=== PATIENT | female | born 1970 | race Caucasian/White ===

== ENCOUNTER 2023-02-21 21:39 | Inpatient (IN) | payer OTHER ==
[~2023-02-21] VITALS: Ht 162.6 cm; Wt 77.1 kg
[~2023-02-21 21:39] MED LIST: ACET-5629 PO; ALBU3SOL83 IH; ASPI-1205 PO; CLON0.1T46 TD; FAMO-90 PO; FERR325E14 PO; FURO-570 PO; GABA300C PO; MELA3TAB21 PO; MELA3TER PO; MERO500V16 IV; METO50TE2 PO; METO5TAB9 PO; MIRABULK PO; MIRT-120 PO; MULT-2246 PO; NEP PO; ONDA-188 PO; OSC500 PO; PRO40I IVP; SIMV-372 PO
[2023-02-21 21:40] VITALS: BP 182/81; PULSE 82; RESP 20; TEMP 97.8; O2SAT 98
[2023-02-21] MEDS ORDERED: cefTRIAXone 1,000 MG in DEXT 5% MINI-BAG PLUS 50 ML IV ONE (21:45)
[2023-02-21] MEDS ORDERED: cefTRIAXone 1,000 MG VIAL ONE (22:40)
[2023-02-21 22:46] LABS: BASOPHILS % (AUTO) 0.2 % (0.0-2.0); EOSINOPHILS % (AUTO) 0.1 % (0.0-4.0); HEMATOCRIT 26.5 % (36-48); HEMOGLOBIN 8.6 g/dL (12.0-16.0); LYMPHOCYTES # (AUTO) 0.7 K/uL (2.5-16.5); LYMPHOCYTES % (AUTO) 3.4 % (20.5-51.1); MEAN CORPUSCULAR HEMOGLOBIN 32 pg (27-31); MEAN CORPUSCULAR HGB CONC 32 g/dL (33-37); MEAN CORPUSCULAR VOLUME 98.5 fL (80-94); MONOCYTES # (AUTO) 1.3 K/uL (0.8-1.0); MONOCYTES % (AUTO) 6.1 % (1.7-9.3); NEUTROPHILS # (AUTO) 19.3 K/uL (1.8-7.7); PLATELET COUNT (AUTO) 305 K/uL (140-450); RED BLOOD CELL COUNT(AUTO) 2.69 MIL/uL (4.20-5.40); RED CELL DISTRIBUTION WIDTH 17.2 % (11.6-13.7); WHITE BLOOD COUNT (AUTO) 21.4 K/uL (4.8-10.8)
[2023-02-21 23:17] LABS: CALCIUM 8.3 mg/dL (8.5-10.1)
[2023-02-21 23:22] LABS: NEUTROPHILS % (AUTO) 90.2 % (42.2-75.2)
[2023-02-21 23:30] LABS: LACTIC ACID 0.9 mmol/L (0.4-2.0)
[2023-02-21] MEDS ORDERED: SODIUM ZIRCONIUM CYCLOSILICATE 10 GM POWD.PACK PO ONE (23:40)
[2023-02-21] MEDS ORDERED: CALCIUM GLUCONATE 10% 1000 MG/10 ML VIAL IVP ONE (23:40)
[2023-02-21] MEDS ORDERED: INSULIN REGULAR, HUMAN 100 UNIT/ML VIAL IVP ONE (23:40)
[2023-02-21] MEDS ORDERED: DEXTROSE 50% 50 ML SYR IVP ONE (23:40)
[2023-02-21] MEDS ORDERED: ALBUTEROL 0.083% 2.5 MG/3 ML NEBU INH ONE (23:40)
[2023-02-21 23:45] VITALS: PULSE 93; RESP 16; O2SAT 99
[2023-02-22] VITALS (8 sets, daily range): BP systolic 116–181; BP diastolic 73–91; PULSE 74–87; RESP 16–18; TEMP 97.6–98.8; O2SAT 99–100
[2023-02-22] MEDS ORDERED: LORazepam 2 MG/ML VIAL IVP ONE
[2023-02-22] MEDS ORDERED: FUROSEMIDE 40 MG/4 ML VIAL IVP ONE (00:15)
[2023-02-22] MEDS ORDERED: ONDANSETRON 4 MG/2 ML VIAL IVP PRN (00:50)
[2023-02-22] MEDS ORDERED: ALBUTEROL 0.083% 2.5 MG/3 ML NEBU INH PRN (00:50)
[2023-02-22 01:04] LABS: APPEARANCE,URINE TURBID (CLEAR); BILIRUBIN,URINE NEGATIVE (NEGATIVE); BLOOD, URINE 2+ (NEGATIVE); COLOR,URINE YELLOW (YELLOW); LEUKOCYTE ESTERASE ,URINE 2+ (NEGATIVE); NITRITE, URINE NEGATIVE (NEGATIVE); PROTEIN,URINE 3+ (NEGATIVE); UGLUCOSE NEGATIVE (NEGATIVE); UROBILINOGEN,URINE 0.2 EU/dL (0.2 - 1)
[2023-02-22 01:15] LABS: BACTERIA,URINE 1+ /HPF (None Seen); RBC,URINE 0-5 /HPF (0-5); SQUAMOUS EPITHELIAL CELL,UR 0-3 (FEW) /LPF (0-3 (FEW))
[2023-02-22 01:16] LABS: WBC,URINE TOO MANY TO COUNT /HPF (0-5)
[2023-02-22] MEDS ORDERED: MORPHINE SULFATE 4 MG/ML SYR IVP ONE (01:30)
[2023-02-22] MEDS ORDERED: SEVE800T6 PO (03:02)
[2023-02-22] MEDS ORDERED: TRAM50TA3 PO (03:02)
[2023-02-22] MEDS ORDERED: INSU100V11 SQ (03:02)
[2023-02-22] MEDS ORDERED: DIPH25SG5 PO (03:02)
[2023-02-22] MEDS ORDERED: TRAZ-466 PO (03:02)
[2023-02-22] MEDS ORDERED: METO-485 PO (03:02)
[2023-02-22] MEDS ORDERED: [UNRECOGNIZED DRUG - CODE] PO (03:02)
[2023-02-22] MEDS ORDERED: CLON0.1T16 PO (03:02)
[2023-02-22] MEDS ORDERED: MUPI2OIN TP (03:02)
[2023-02-22] MEDS ORDERED: OMAD150T PO (03:02)
[2023-02-22] MEDS ORDERED: XALOS OP (03:04)
[2023-02-22] MEDS: FUROSEMIDE 40 MG/4 ML VIAL IVP SCH ×2 (09:00→21:31)
[2023-02-22] MEDS: METOPROLOL SUCCINATE 50 MG TABER PO SCH (09:00)
[2023-02-22 10:21] LABS: BASOPHILS # (AUTO) 0.1 K/uL (0.00-0.22); BASOPHILS % (AUTO) 0.4 % (0.0-2.0); EOSINOPHILS # (AUTO) 0.1 K/uL (0-0.4); EOSINOPHILS % (AUTO) 0.5 % (0.0-4.0); HEMATOCRIT 26.3 % (36-48); HEMOGLOBIN 8.7 g/dL (12.0-16.0); LYMPHOCYTES # (AUTO) 0.9 K/uL (2.5-16.5); LYMPHOCYTES % (AUTO) 3.9 % (20.5-51.1); MEAN CORPUSCULAR HEMOGLOBIN 33 pg (27-31); MEAN CORPUSCULAR HGB CONC 33 g/dL (33-37); MEAN CORPUSCULAR VOLUME 98.7 fL (80-94); MONOCYTES # (AUTO) 1.9 K/uL (0.8-1.0); MONOCYTES % (AUTO) 8.4 % (1.7-9.3); NEUTROPHILS # (AUTO) 19.5 K/uL (1.8-7.7); NEUTROPHILS % (AUTO) 86.8 % (42.2-75.2); PLATELET COUNT (AUTO) 279 K/uL (140-450); RED BLOOD CELL COUNT(AUTO) 2.67 MIL/uL (4.20-5.40); RED CELL DISTRIBUTION WIDTH 16.8 % (11.6-13.7); WHITE BLOOD COUNT (AUTO) 22.5 K/uL (4.8-10.8)
[2023-02-22 10:37] LABS: ANION GAP 14.1 (8-16); CALCIUM 8.5 mg/dL (8.5-10.1); POTASSIUM 4.1 mmol/L (3.5-5.1)
[2023-02-22 10:48] LABS: CREATININE 5.9 mg/dL (0.6-1.3)
[2023-02-22 11:20] LABS: INR 1.72 (0.8-1.2); PARTIAL THROMBOPLASTIN TIME 36.3 secs (22-35.6); PROTHROMBIN TIME 17.6 secs (10.8-13.4)
[2023-02-22] MEDS: HYDRAGUARD CREAM TP SCH (13:00)
[2023-02-22] MEDS: MIRTAZAPINE 15 MG TAB PO SCH (21:31)
[2023-02-22] MEDS: hydrALAZINE 25 MG TAB PO PRN (23:34)
[2023-02-23] VITALS (11 sets, daily range): BP systolic 148–192; BP diastolic 65–83; PULSE 74–88; RESP 18–20; TEMP 97.3–98.8; O2SAT 93–100
[2023-02-23] MEDS: HYDRAGUARD CREAM TP SCH ×2 (02:18→12:40)
[2023-02-23 06:37] LABS: BASOPHILS % (AUTO) 0.2 % (0.0-2.0); EOSINOPHILS # (AUTO) 0.1 K/uL (0-0.4); EOSINOPHILS % (AUTO) 0.6 % (0.0-4.0); HEMATOCRIT 26.2 % (36-48); HEMOGLOBIN 8.5 g/dL (12.0-16.0); LYMPHOCYTES # (AUTO) 0.8 K/uL (2.5-16.5); LYMPHOCYTES % (AUTO) 4.1 % (20.5-51.1); MEAN CORPUSCULAR HEMOGLOBIN 32 pg (27-31); MEAN CORPUSCULAR HGB CONC 33 g/dL (33-37); MEAN CORPUSCULAR VOLUME 99.3 fL (80-94); MONOCYTES # (AUTO) 1.6 K/uL (0.8-1.0); MONOCYTES % (AUTO) 8.4 % (1.7-9.3); NEUTROPHILS % (AUTO) 86.7 % (42.2-75.2); PLATELET COUNT (AUTO) 303 K/uL (140-450); RED BLOOD CELL COUNT(AUTO) 2.64 MIL/uL (4.20-5.40); RED CELL DISTRIBUTION WIDTH 16.6 % (11.6-13.7); WHITE BLOOD COUNT (AUTO) 19.6 K/uL (4.8-10.8)
[2023-02-23 06:41] LABS: ALBUMIN 1.7 g/dL (3.4-5.0); ANION GAP 13.8 (8-16); CALCIUM 8.2 mg/dL (8.5-10.1); CARBON DIOXIDE 28.9 mmol/L (21-32); MAGNESIUM 2.2 mg/dL (1.8-2.4); PHOSPHORUS 2.6 mg/dL (2.5-4.9); POTASSIUM 3.7 mmol/L (3.5-5.1); TOTAL BILIRUBIN 0.6 mg/dL (0.0-1.0)
[2023-02-23 06:43] LABS: CREATININE 4.2 mg/dL (0.6-1.3)
[2023-02-23] MEDS: METOPROLOL SUCCINATE 50 MG TABER PO SCH (09:03)
[2023-02-23] MEDS: ASPIRIN 81 MG TAB.CHEW PO SCH (09:03)
[2023-02-23] MEDS: FUROSEMIDE 40 MG/4 ML VIAL IVP SCH ×2 (09:04→20:42)
[2023-02-23] MEDS: LOSARTAN 25 MG TAB PO SCH (09:04)
[2023-02-23] MEDS: MIRTAZAPINE 15 MG TAB PO SCH (20:43)
[2023-02-24] VITALS (8 sets, daily range): BP systolic 120–175; BP diastolic 71–87; PULSE 82–88; RESP 18–24; TEMP 97.2–98.8; O2SAT 94–100
[2023-02-24] MEDS: HYDRAGUARD CREAM TP SCH ×2 (01:26→12:54)
[2023-02-24] MEDS: hydrALAZINE 25 MG TAB PO PRN (04:11)
[2023-02-24 07:47] LABS: ANION GAP 18.3 (8-16); CALCIUM 8.6 mg/dL (8.5-10.1); CARBON DIOXIDE 24.7 mmol/L (21-32)
[2023-02-24 07:49] LABS: CREATININE 4.5 mg/dL (0.6-1.3)
[2023-02-24] MEDS: ASPIRIN 81 MG TAB.CHEW PO SCH (08:41)
[2023-02-24] MEDS: FUROSEMIDE 40 MG/4 ML VIAL IVP SCH ×2 (08:41→20:51)
[2023-02-24] MEDS: METOPROLOL SUCCINATE 50 MG TABER PO SCH (08:41)
[2023-02-24] MEDS: LOSARTAN 25 MG TAB PO SCH (08:41)
[2023-02-24 09:04] LABS: BASOPHILS % (AUTO) 0.1 % (0.0-2.0); EOSINOPHILS % (AUTO) 0.2 % (0.0-4.0); HEMATOCRIT 27.3 % (36-48); LYMPHOCYTES # (AUTO) 0.9 K/uL (2.5-16.5); LYMPHOCYTES % (AUTO) 4.5 % (20.5-51.1); MEAN CORPUSCULAR HEMOGLOBIN 33 pg (27-31); MEAN CORPUSCULAR HGB CONC 33 g/dL (33-37); MEAN CORPUSCULAR VOLUME 98.8 fL (80-94); MONOCYTES # (AUTO) 1.6 K/uL (0.8-1.0); MONOCYTES % (AUTO) 8.4 % (1.7-9.3); NEUTROPHILS # (AUTO) 16.3 K/uL (1.8-7.7); NEUTROPHILS % (AUTO) 86.8 % (42.2-75.2); PLATELET COUNT (AUTO) 302 K/uL (140-450); RED BLOOD CELL COUNT(AUTO) 2.76 MIL/uL (4.20-5.40); RED CELL DISTRIBUTION WIDTH 17.1 % (11.6-13.7); WHITE BLOOD COUNT (AUTO) 18.8 K/uL (4.8-10.8)
[2023-02-24] MEDS ORDERED: NON ADHERENT DRESSING TP PRN (12:25)
[2023-02-24] MEDS ORDERED: Z-GUARD PASTE TP PRN (12:25)
[2023-02-24] MEDS: NON ADHERENT DRESSING TP SCH (12:55)
[2023-02-24] MEDS: Z-GUARD PASTE TP SCH (12:55)
[2023-02-24 19:36] LABS: TOTAL VOLUME,BODY FLUID 2000 mL
[2023-02-24 19:47] LABS: APPEARANCE,SPUN,BODY FLUID CLEAR (CLEAR); APPEARANCE,UNSPUN,BODY FLUID CLEAR (CLEAR); COLOR,BODY FLUID YELLOW (LT YELLOW); GLUCOSE,BODY FLUID 69 mg/dL; RBC, BODY FLUID 19 /cu. mm.; SPECIMENTYPE,BODY FLUID THORACENTESIS; WBC, BODY FLUID 2 /cu. mm.
[2023-02-24] MEDS: MIRTAZAPINE 15 MG TAB PO SCH (20:51)
[2023-02-25] VITALS (9 sets, daily range): BP systolic 146–192; BP diastolic 65–80; PULSE 78–85; RESP 17–18; TEMP 97.3–98.1; O2SAT 97–99
[2023-02-25] MEDS: HYDRAGUARD CREAM TP SCH ×2 (01:05→13:00)
[2023-02-25] MEDS: Z-GUARD PASTE TP SCH ×2 (01:05→13:00)
[2023-02-25 06:25] LABS: BASOPHILS % (AUTO) 0.1 % (0.0-2.0); EOSINOPHILS # (AUTO) 0.1 K/uL (0-0.4); EOSINOPHILS % (AUTO) 0.5 % (0.0-4.0); HEMATOCRIT 28.4 % (36-48); HEMOGLOBIN 9.4 g/dL (12.0-16.0); LYMPHOCYTES # (AUTO) 0.9 K/uL (2.5-16.5); MEAN CORPUSCULAR HEMOGLOBIN 33 pg (27-31); MEAN CORPUSCULAR HGB CONC 33 g/dL (33-37); MEAN CORPUSCULAR VOLUME 97.8 fL (80-94); MONOCYTES # (AUTO) 1.7 K/uL (0.8-1.0); MONOCYTES % (AUTO) 7.7 % (1.7-9.3); NEUTROPHILS # (AUTO) 18.9 K/uL (1.8-7.7); NEUTROPHILS % (AUTO) 87.7 % (42.2-75.2); PLATELET COUNT (AUTO) 298 K/uL (140-450); RED CELL DISTRIBUTION WIDTH 17.2 % (11.6-13.7); WHITE BLOOD COUNT (AUTO) 21.6 K/uL (4.8-10.8)
[2023-02-25 06:46] LABS: ANION GAP 17.2 (8-16); CALCIUM 8.2 mg/dL (8.5-10.1); CARBON DIOXIDE 26.1 mmol/L (21-32); POTASSIUM 4.3 mmol/L (3.5-5.1)
[2023-02-25 08:39] LABS: CREATININE 5.1 mg/dL (0.6-1.3)
[2023-02-25] MEDS: ASPIRIN 81 MG TAB.CHEW PO SCH ×2 (08:42→09:00)
[2023-02-25] MEDS: FUROSEMIDE 40 MG/4 ML VIAL IVP SCH ×2 (08:42→23:02)
[2023-02-25] MEDS: VIT-B COMP/VIT-C/FOLIC ACID 1 TAB PO SCH ×2 (08:43→09:00)
[2023-02-25] MEDS: LOSARTAN 25 MG TAB PO SCH ×2 (08:43→09:00)
[2023-02-25] MEDS: METOPROLOL SUCCINATE 50 MG TABER PO SCH ×2 (08:43→09:00)
[2023-02-25] MEDS: EPOETIN ALFA 4,000 UNITS/ML VIAL SUBQ SCH (08:45)
[2023-02-25] MEDS: hydrALAZINE 20 MG/ML VIAL IVP PRN (08:59)
[2023-02-25] MEDS ORDERED: LABETALOL 20 MG/4 ML VIAL IVP PRN (11:55)
[2023-02-25] MEDS: NON ADHERENT DRESSING TP SCH (13:00)
[2023-02-25] MEDS: MIRTAZAPINE 15 MG TAB PO SCH (21:00)
[2023-02-26] MEDS: hydrALAZINE 20 MG/ML VIAL IVP PRN (00:30)
[2023-02-26] MEDS: HYDRAGUARD CREAM TP SCH ×2 (01:00→12:16)
[2023-02-26] MEDS: Z-GUARD PASTE TP SCH ×2 (01:00→12:17)
[2023-02-26 04:00] VITALS: BP 144/66; PULSE 84; RESP 18; TEMP 97.9; O2SAT 98
[2023-02-26 06:34] LABS: BASOPHILS % (AUTO) 0.2 % (0.0-2.0); EOSINOPHILS # (AUTO) 0.1 K/uL (0-0.4); EOSINOPHILS % (AUTO) 0.2 % (0.0-4.0); HEMOGLOBIN 8.3 g/dL (12.0-16.0); LYMPHOCYTES # (AUTO) 0.9 K/uL (2.5-16.5); LYMPHOCYTES % (AUTO) 3.7 % (20.5-51.1); MEAN CORPUSCULAR HEMOGLOBIN 32 pg (27-31); MEAN CORPUSCULAR HGB CONC 33 g/dL (33-37); MEAN CORPUSCULAR VOLUME 97.8 fL (80-94); MONOCYTES # (AUTO) 1.9 K/uL (0.8-1.0); MONOCYTES % (AUTO) 8.1 % (1.7-9.3); NEUTROPHILS # (AUTO) 20.4 K/uL (1.8-7.7); NEUTROPHILS % (AUTO) 87.8 % (42.2-75.2); PLATELET COUNT (AUTO) 228 K/uL (140-450); RED BLOOD CELL COUNT(AUTO) 2.56 MIL/uL (4.20-5.40); WHITE BLOOD COUNT (AUTO) 23.2 K/uL (4.8-10.8)
[2023-02-26 07:28] LABS: ANION GAP 17.3 (8-16); CALCIUM 8.3 mg/dL (8.5-10.1); CARBON DIOXIDE 25.2 mmol/L (21-32); POTASSIUM 3.5 mmol/L (3.5-5.1)
[2023-02-26] MEDS: FUROSEMIDE 40 MG/4 ML VIAL IVP SCH ×2 (08:34→20:45)
[2023-02-26] MEDS: ASPIRIN 81 MG TAB.CHEW PO SCH (08:34)
[2023-02-26] MEDS: LOSARTAN 25 MG TAB PO SCH (08:35)
[2023-02-26] MEDS: VIT-B COMP/VIT-C/FOLIC ACID 1 TAB PO SCH (08:35)
[2023-02-26] MEDS: METOPROLOL SUCCINATE 50 MG TABER PO SCH (08:35)
[2023-02-26 09:03] VITALS: BP 149/65; PULSE 86; RESP 20; TEMP 98.4; O2SAT 96
[2023-02-26 09:04] VITALS: PULSE 86; RESP 18; RESP 20; O2SAT 96
[2023-02-26] MEDS: NON ADHERENT DRESSING TP SCH (12:16)
[2023-02-26 17:02] VITALS: BP 136/55; PULSE 82; RESP 20; TEMP 98.2; O2SAT 98
[2023-02-26 20:00] VITALS: BP 152/68; PULSE 86; RESP 18; RESP 20; TEMP 96.8; TEMP 98.2; O2SAT 96; O2SAT 98
[2023-02-26 20:21] VITALS: O2SAT 93
[2023-02-26] MEDS: ACETAMINOPHEN 325 MG TAB PO PRN (20:44)
[2023-02-26] MEDS: LACTULOSE 20 GM/30 ML UDC PO SCH ×2 (20:45→22:14)
[2023-02-26] MEDS: MIRTAZAPINE 15 MG TAB PO SCH (20:45)
[2023-02-27] MEDS: Z-GUARD PASTE TP SCH ×2 (01:08→12:59)
[2023-02-27] MEDS: HYDRAGUARD CREAM TP SCH ×2 (01:08→12:59)
[2023-02-27 04:15] VITALS: BP 114/72; PULSE 84; RESP 18; TEMP 97.5; O2SAT 99
[2023-02-27 06:13] LABS: EOSINOPHILS # (AUTO) 0.1 K/uL (0-0.4); EOSINOPHILS % (AUTO) 0.4 % (0.0-4.0); HEMATOCRIT 24.1 % (36-48); LYMPHOCYTES # (AUTO) 0.9 K/uL (2.5-16.5); LYMPHOCYTES % (AUTO) 4.5 % (20.5-51.1); MEAN CORPUSCULAR HEMOGLOBIN 32 pg (27-31); MEAN CORPUSCULAR HGB CONC 33 g/dL (33-37); MEAN CORPUSCULAR VOLUME 97.6 fL (80-94); MONOCYTES % (AUTO) 5.2 % (1.7-9.3); NEUTROPHILS # (AUTO) 17.5 K/uL (1.8-7.7); NEUTROPHILS % (AUTO) 89.9 % (42.2-75.2); PLATELET COUNT (AUTO) 188 K/uL (140-450); RED BLOOD CELL COUNT(AUTO) 2.47 MIL/uL (4.20-5.40); RED CELL DISTRIBUTION WIDTH 17.8 % (11.6-13.7); WHITE BLOOD COUNT (AUTO) 19.5 K/uL (4.8-10.8)
[2023-02-27 06:21] LABS: ANION GAP 11.4 (8-16); CALCIUM 7.9 mg/dL (8.5-10.1); POTASSIUM 3.4 mmol/L (3.5-5.1)
[2023-02-27 07:11] LABS: CREATININE 4.6 mg/dL (0.6-1.3)
[2023-02-27 07:55] LABS: MAGNESIUM 2.1 mg/dL (1.8-2.4)
[2023-02-27 08:00] VITALS: BP 148/58; PULSE 78; PULSE 90; RESP 18; TEMP 96; O2SAT 100
[2023-02-27] MEDS: VIT-B COMP/VIT-C/FOLIC ACID 1 TAB PO SCH (09:00)
[2023-02-27] MEDS: ASPIRIN 81 MG TAB.CHEW PO SCH (09:00)
[2023-02-27] MEDS: EPOETIN ALFA 4,000 UNITS/ML VIAL SUBQ SCH (09:00)
[2023-02-27] MEDS: LACTULOSE 20 GM/30 ML UDC PO SCH ×3 (09:00→20:57)
[2023-02-27] MEDS: LOSARTAN 25 MG TAB PO SCH (09:00)
[2023-02-27] MEDS: METOPROLOL SUCCINATE 50 MG TABER PO SCH (09:00)
[2023-02-27] MEDS: NON ADHERENT DRESSING TP SCH (12:59)
[2023-02-27] MEDS: FUROSEMIDE 40 MG/4 ML VIAL IVP SCH ×3 (13:34→20:59)
[2023-02-27 16:00] VITALS: BP 129/71; PULSE 90; RESP 18; TEMP 97.8; O2SAT 100
[2023-02-27 20:00] VITALS: BP 113/52; PULSE 93; RESP 18; RESP 20; TEMP 97.7; TEMP 98.2; O2SAT 100; O2SAT 96; O2SAT 98
[2023-02-27 20:11] VITALS: O2SAT 98
[2023-02-27] MEDS: MIRTAZAPINE 15 MG TAB PO SCH (20:57)
[2023-02-28] VITALS (7 sets, daily range): BP systolic 125–170; BP diastolic 55–67; PULSE 77–92; RESP 17–23; TEMP 97.8–98.2; O2SAT 95–100
[2023-02-28] MEDS: Z-GUARD PASTE TP SCH ×2 (00:31→13:25)
[2023-02-28] MEDS: HYDRAGUARD CREAM TP SCH ×2 (00:31→13:25)
[2023-02-28] MEDS: hydrALAZINE 20 MG/ML VIAL IVP PRN (05:18)
[2023-02-28 07:10] LABS: BASOPHILS % (AUTO) 0.2 % (0.0-2.0); EOSINOPHILS % (AUTO) 0.1 % (0.0-4.0); HEMOGLOBIN 7.6 g/dL (12.0-16.0); LYMPHOCYTES # (AUTO) 1.3 K/uL (2.5-16.5); LYMPHOCYTES % (AUTO) 6.2 % (20.5-51.1); MEAN CORPUSCULAR HEMOGLOBIN 33 pg (27-31); MEAN CORPUSCULAR HGB CONC 33 g/dL (33-37); MONOCYTES # (AUTO) 1.6 K/uL (0.8-1.0); MONOCYTES % (AUTO) 7.5 % (1.7-9.3); NEUTROPHILS # (AUTO) 18.2 K/uL (1.8-7.7); PLATELET COUNT (AUTO) 170 K/uL (140-450); RED BLOOD CELL COUNT(AUTO) 2.35 MIL/uL (4.20-5.40); RED CELL DISTRIBUTION WIDTH 17.3 % (11.6-13.7); WHITE BLOOD COUNT (AUTO) 21.2 K/uL (4.8-10.8)
[2023-02-28 07:17] LABS: ANION GAP 12.2 (8-16); CALCIUM 7.8 mg/dL (8.5-10.1); CARBON DIOXIDE 29.3 mmol/L (21-32); CREATININE 3.8 mg/dL (0.6-1.3); POTASSIUM 3.5 mmol/L (3.5-5.1)
[2023-02-28] MEDS: FUROSEMIDE 40 MG/4 ML VIAL IVP SCH ×2 (08:56→21:56)
[2023-02-28] MEDS: VIT-B COMP/VIT-C/FOLIC ACID 1 TAB PO SCH (09:28)
[2023-02-28] MEDS: ASPIRIN 81 MG TAB.CHEW PO SCH (09:28)
[2023-02-28] MEDS: LOSARTAN 25 MG TAB PO SCH (09:28)
[2023-02-28] MEDS: LACTULOSE 20 GM/30 ML UDC PO SCH ×2 (09:28→20:54)
[2023-02-28] MEDS: METOPROLOL SUCCINATE 50 MG TABER PO SCH (09:29)
[2023-02-28] MEDS: NON ADHERENT DRESSING TP SCH (13:25)
[2023-02-28] MEDS: MIRTAZAPINE 15 MG TAB PO SCH (20:43)
[2023-02-28] MEDS: PIPERACILLIN/TAZOBACTAM 2.25 GM in DEXTROSE 5% 50 ML IV SCH (21:55)
[2023-03-01] MEDS: HYDRAGUARD CREAM TP SCH ×2 (01:00→13:19)
[2023-03-01] MEDS: Z-GUARD PASTE TP SCH ×2 (01:00→13:20)
[2023-03-01 04:00] VITALS: BP 109/58; PULSE 63; RESP 22; TEMP 97.9; O2SAT 98
[2023-03-01] MEDS: PIPERACILLIN/TAZOBACTAM 2.25 GM in DEXTROSE 5% 50 ML IV SCH ×3 (04:42→22:04)
[2023-03-01 06:58] LABS: CALCIUM 7.8 mg/dL (8.5-10.1); HEMATOCRIT 24.2 % (36-48); HEMOGLOBIN 7.9 g/dL (12.0-16.0); MEAN CORPUSCULAR HEMOGLOBIN 33 pg (27-31); MEAN CORPUSCULAR HGB CONC 33 g/dL (33-37); MEAN CORPUSCULAR VOLUME 100.7 fL (80-94); PLATELET COUNT (AUTO) 183 K/uL (140-450); RED CELL DISTRIBUTION WIDTH 18.6 % (11.6-13.7)
[2023-03-01 07:19] LABS: CREATININE 4.4 mg/dL (0.6-1.3)
[2023-03-01 07:25] LABS: WHITE BLOOD COUNT (AUTO) 27.7 K/uL (4.8-10.8)
[2023-03-01 08:00] VITALS: PULSE 74; RESP 18; TEMP 97.6; O2SAT 96
[2023-03-01 08:03] LABS: BASOPHILS % (MANUAL) 0 % (0-2); BLASTS, MANUAL % 0 % (0-0); EOSINOPHILS % (MANUAL) 0 % (0-4); LYMPHOCYTES % (MANUAL) 6 % (20-46); METAMYELOCYTES % 0 % (0-0); MONOCYTES % (MANUAL) 4 % (5-12); MYELOCYTES % 0 % (0-0); OTHER CELLS,MANUAL % 0 (0-0); PLASMA CELLS 0; PLATELET ESTIMATE ADEQUATE; PROMYELOCYTES % 0 % (0-0); SMUDGE CELLS 0
[2023-03-01 08:04] LABS: ANISOCYTOSIS 1+; OVALOCYTES 1+; SCHISTOCYTES 1+; TEAR DROP CELLS 1+
[2023-03-01] MEDS: LOSARTAN 25 MG TAB PO SCH (09:00)
[2023-03-01] MEDS: ASPIRIN 81 MG TAB.CHEW PO SCH (09:00)
[2023-03-01] MEDS: METOPROLOL SUCCINATE 50 MG TABER PO SCH (09:00)
[2023-03-01] MEDS: FUROSEMIDE 40 MG/4 ML VIAL IVP SCH ×2 (09:00→22:05)
[2023-03-01] MEDS: LACTULOSE 20 GM/30 ML UDC PO SCH ×2 (09:31→22:05)
[2023-03-01] MEDS: VIT-B COMP/VIT-C/FOLIC ACID 1 TAB PO SCH (09:32)
[2023-03-01] MEDS: HYDROcodone/APAP 5/325 MG 1 TAB TAB PO PRN (10:24)
[2023-03-01 12:00] VITALS: O2SAT 97
[2023-03-01] MEDS: NON ADHERENT DRESSING TP SCH (13:19)
[2023-03-01] MEDS: EPOETIN ALFA 4,000 UNITS/ML VIAL SUBQ SCH (14:36)
[2023-03-01 15:07] LABS: LD1 FRACTION 18 % (17-32); LD2 FRACTION 33 % (25-40); LD3 FRACTION 22 % (17-27); LD4 FRACTION 13 % (5-13); LD5 FRACTION 14 % (4-20)
[2023-03-01 19:11] VITALS: O2SAT 98
[2023-03-01 20:00] VITALS: BP 130/64; PULSE 84; RESP 21; TEMP 96.8; O2SAT 92
[2023-03-01 21:01] LABS: LACTATE DEHYDROGENASE 233 IU/L (0-214)
[2023-03-01] MEDS: MIRTAZAPINE 15 MG TAB PO SCH (22:06)
[2023-03-02] MEDS: HYDRAGUARD CREAM TP SCH ×2 (00:39→13:59)
[2023-03-02] MEDS: Z-GUARD PASTE TP SCH ×2 (00:40→14:00)
[2023-03-02 04:00] VITALS: BP 147/68; PULSE 88; RESP 21; TEMP 97; O2SAT 100
[2023-03-02] MEDS: PIPERACILLIN/TAZOBACTAM 2.25 GM in DEXTROSE 5% 50 ML IV SCH ×3 (05:35→20:25)
[2023-03-02 08:00] VITALS: BP 125/58; PULSE 74; PULSE 89; RESP 18; TEMP 97.2; TEMP 97.6; O2SAT 96
[2023-03-02 08:20] VITALS: O2SAT 99
[2023-03-02] MEDS: LACTULOSE 20 GM/30 ML UDC PO SCH ×2 (09:36→20:26)
[2023-03-02] MEDS: FUROSEMIDE 40 MG/4 ML VIAL IVP SCH ×2 (09:36→20:25)
[2023-03-02] MEDS: LOSARTAN 25 MG TAB PO SCH (09:36)
[2023-03-02] MEDS: ASPIRIN 81 MG TAB.CHEW PO SCH (09:36)
[2023-03-02] MEDS: METOPROLOL SUCCINATE 50 MG TABER PO SCH (09:36)
[2023-03-02] MEDS: VIT-B COMP/VIT-C/FOLIC ACID 1 TAB PO SCH (09:37)
[2023-03-02] MEDS ORDERED: DEXTROSE 50% 50 ML SYR IVP PRN (11:35)
[2023-03-02] MEDS: HYDROcodone/APAP 5/325 MG 1 TAB TAB PO PRN ×2 (12:16→20:27)
[2023-03-02 12:50] LABS: BASOPHILS # (AUTO) 0.1 K/uL (0.00-0.22); BASOPHILS % (AUTO) 0.3 % (0.0-2.0); EOSINOPHILS % (AUTO) 0.1 % (0.0-4.0); HEMATOCRIT 24.5 % (36-48); HEMOGLOBIN 7.9 g/dL (12.0-16.0); LYMPHOCYTES # (AUTO) 1.8 K/uL (2.5-16.5); LYMPHOCYTES % (AUTO) 6.8 % (20.5-51.1); MEAN CORPUSCULAR HEMOGLOBIN 32 pg (27-31); MEAN CORPUSCULAR HGB CONC 32 g/dL (33-37); MEAN CORPUSCULAR VOLUME 100.3 fL (80-94); MONOCYTES # (AUTO) 2.6 K/uL (0.8-1.0); MONOCYTES % (AUTO) 9.7 % (1.7-9.3); NEUTROPHILS # (AUTO) 21.7 K/uL (1.8-7.7); NEUTROPHILS % (AUTO) 83.1 % (42.2-75.2); PLATELET COUNT (AUTO) 223 K/uL (140-450); RED BLOOD CELL COUNT(AUTO) 2.45 MIL/uL (4.20-5.40); RED CELL DISTRIBUTION WIDTH 17.7 % (11.6-13.7)
[2023-03-02 12:55] LABS: ALBUMIN 1.5 g/dL (3.4-5.0); CALCIUM 7.6 mg/dL (8.5-10.1); CARBON DIOXIDE 29.8 mmol/L (21-32); CREATININE 3.5 mg/dL (0.6-1.3); POTASSIUM 3.8 mmol/L (3.5-5.1); TOTAL BILIRUBIN 0.5 mg/dL (0.0-1.0); TOTAL PROTEIN, SERUM 6.3 g/dL (6.4-8.2)
[2023-03-02 13:49] LABS: WHITE BLOOD COUNT (AUTO) 26.2 K/uL (4.8-10.8)
[2023-03-02] MEDS: NON ADHERENT DRESSING TP SCH (13:58)
[2023-03-02] MEDS: INSULIN LISPRO SLIDING SCALE 100 UNITS/ML VIAL SUBQ PRN ×3 (16:40→20:37)
[2023-03-02] MEDS: BLOOD GLUCOSE MONITORING 1 DEV DEV FS SCH ×2 (16:43→20:29)
[2023-03-02 19:23] VITALS: O2SAT 98
[2023-03-02 20:00] VITALS: BP 136/70; PULSE 72; RESP 20; TEMP 97.4; O2SAT 95
[2023-03-02] MEDS: MIRTAZAPINE 15 MG TAB PO SCH (20:27)
[2023-03-03] MEDS: HYDRAGUARD CREAM TP SCH ×2 (02:20→13:44)
[2023-03-03] MEDS: Z-GUARD PASTE TP SCH ×2 (02:21→13:44)
[2023-03-03 04:00] VITALS: BP 112/55; PULSE 72; RESP 20; TEMP 96.2; O2SAT 94
[2023-03-03] MEDS: HYDROcodone/APAP 5/325 MG 1 TAB TAB PO PRN ×2 (04:38→17:36)
[2023-03-03] MEDS: PIPERACILLIN/TAZOBACTAM 2.25 GM in DEXTROSE 5% 50 ML IV SCH ×3 (04:41→22:18)
[2023-03-03] MEDS: INSULIN LISPRO SLIDING SCALE 100 UNITS/ML VIAL SUBQ PRN (06:46)
[2023-03-03] MEDS: BLOOD GLUCOSE MONITORING 1 DEV DEV FS SCH ×4 (06:50→22:25)
[2023-03-03 08:00] VITALS: BP 141/67; PULSE 68; PULSE 74; RESP 17; RESP 18; TEMP 97.6; O2SAT 95; O2SAT 96
[2023-03-03] MEDS: LACTULOSE 20 GM/30 ML UDC PO SCH ×2 (09:38→22:17)
[2023-03-03] MEDS: VIT-B COMP/VIT-C/FOLIC ACID 1 TAB PO SCH (09:39)
[2023-03-03] MEDS: ASPIRIN 81 MG TAB.CHEW PO SCH (09:39)
[2023-03-03] MEDS: METOPROLOL SUCCINATE 50 MG TABER PO SCH (09:39)
[2023-03-03] MEDS: LOSARTAN 25 MG TAB PO SCH (09:39)
[2023-03-03] MEDS: FUROSEMIDE 40 MG/4 ML VIAL IVP SCH ×2 (09:40→22:18)
[2023-03-03] MEDS: NON ADHERENT DRESSING TP SCH (13:43)
[2023-03-03] MEDS ORDERED: CEPH-588 PO (14:19)
[2023-03-03 20:00] VITALS: BP 142/66; PULSE 70; RESP 18; TEMP 36.1; O2SAT 94
[2023-03-03] MEDS: MIRTAZAPINE 15 MG TAB PO SCH (22:17)
[2023-03-03 22:18] VITALS: O2SAT 94
[2023-03-04] MEDS: Z-GUARD PASTE TP SCH ×2 (01:00→13:00)
[2023-03-04] MEDS: HYDRAGUARD CREAM TP SCH ×2 (01:00→13:00)
[2023-03-04 04:00] VITALS: BP 147/74; PULSE 73; RESP 21; TEMP 97; O2SAT 96
[2023-03-04] MEDS: PIPERACILLIN/TAZOBACTAM 2.25 GM in DEXTROSE 5% 50 ML IV SCH ×2 (05:08→13:00)
[2023-03-04] MEDS: HYDROcodone/APAP 5/325 MG 1 TAB TAB PO PRN (05:13)
[2023-03-04] MEDS: BLOOD GLUCOSE MONITORING 1 DEV DEV FS SCH ×2 (06:56→11:37)
[2023-03-04 07:24] VITALS: O2SAT 94
[2023-03-04 07:52] LABS: ANION GAP 15.6 (8-16); CALCIUM 7.6 mg/dL (8.5-10.1); CARBON DIOXIDE 27.7 mmol/L (21-32); POTASSIUM 4.3 mmol/L (3.5-5.1)
[2023-03-04 08:00] VITALS: PULSE 78; RESP 18; TEMP 98; O2SAT 95
[2023-03-04 08:31] LABS: CREATININE 4.4 mg/dL (0.6-1.3)
[2023-03-04] MEDS ORDERED: EPOETIN ALFA-EPBX 10,000 UNITS/ML VIAL SUBQ SCH (09:00)
[2023-03-04] MEDS: ASPIRIN 81 MG TAB.CHEW PO SCH (09:40)
[2023-03-04] MEDS: LACTULOSE 20 GM/30 ML UDC PO SCH ×2 (09:41→09:50)
[2023-03-04] MEDS: VIT-B COMP/VIT-C/FOLIC ACID 1 TAB PO SCH (09:41)
[2023-03-04] MEDS: METOPROLOL SUCCINATE 50 MG TABER PO SCH (09:41)
[2023-03-04] MEDS: LOSARTAN 25 MG TAB PO SCH ×2 (09:42→09:51)
[2023-03-04] MEDS: FUROSEMIDE 40 MG/4 ML VIAL IVP SCH ×2 (09:42→09:50)
[2023-03-04 10:13] LABS: BASOPHILS # (AUTO) 0.2 K/uL (0.00-0.22); BASOPHILS % (AUTO) 0.7 % (0.0-2.0); EOSINOPHILS # (AUTO) 0.1 K/uL (0-0.4); EOSINOPHILS % (AUTO) 0.4 % (0.0-4.0); HEMATOCRIT 26.3 % (36-48); HEMOGLOBIN 8.3 g/dL (12.0-16.0); LYMPHOCYTES # (AUTO) 1.3 K/uL (2.5-16.5); LYMPHOCYTES % (AUTO) 5.1 % (20.5-51.1); MEAN CORPUSCULAR HEMOGLOBIN 33 pg (27-31); MEAN CORPUSCULAR HGB CONC 32 g/dL (33-37); MEAN CORPUSCULAR VOLUME 102.9 fL (80-94); MONOCYTES # (AUTO) 2.5 K/uL (0.8-1.0); MONOCYTES % (AUTO) 9.5 % (1.7-9.3); NEUTROPHILS # (AUTO) 22.2 K/uL (1.8-7.7); NEUTROPHILS % (AUTO) 84.3 % (42.2-75.2); PLATELET COUNT (AUTO) 226 K/uL (140-450); RED BLOOD CELL COUNT(AUTO) 2.56 MIL/uL (4.20-5.40)
[2023-03-04 10:17] LABS: WHITE BLOOD COUNT (AUTO) 26.4 K/uL (4.8-10.8)
[2023-03-04] MEDS: NON ADHERENT DRESSING TP SCH (13:00)
[2023-03-04] MEDS: ACETAMINOPHEN 325 MG TAB PO PRN (14:43)
[2023-03-04 17:35] VITALS: BP 99/62; PULSE 68; RESP 20; TEMP 98.6
== END 2023-03-04 18:46 | DRG 720 ==
LOC: MED 21:39 → MTU 02-22 01:01
PROVIDERS: ADMIT Internal Medicine; ATTEND Internal Medicine
PROC: 5A1D70Z Performance of Urinary Filtration, Intermittent, Less than 6 Hours Per Day (ICD-10-PCS; 2023-02-22)
PROC: 0W993ZZ Drainage of Right Pleural Cavity, Percutaneous Approach (ICD-10-PCS; principal; 2023-02-24)
PROC: 5A1D70Z Performance of Urinary Filtration, Intermittent, Less than 6 Hours Per Day (ICD-10-PCS; 2023-02-24)
PROC: 5A1D70Z Performance of Urinary Filtration, Intermittent, Less than 6 Hours Per Day (ICD-10-PCS; 2023-02-26)
PROC: 5A1D70Z Performance of Urinary Filtration, Intermittent, Less than 6 Hours Per Day (ICD-10-PCS; 2023-02-28)
PROC: 5A1D70Z Performance of Urinary Filtration, Intermittent, Less than 6 Hours Per Day (ICD-10-PCS; 2023-03-03)
DX: A41.9 Sepsis, unspecified organism (principal); J96.01 Acute respiratory failure with hypoxia; G93.40 Encephalopathy, unspecified; I50.31 Acute diastolic (congestive) heart failure; J15.69 Pneumonia due to other Gram-negative bacteria; J90 Pleural effusion, not elsewhere classified; N18.6 End stage renal disease; S09.90XA Unspecified injury of head, initial encounter; I13.2 Hypertensive heart and chronic kidney disease with heart failure and with stage 5 chronic kidney disease, or end stage renal disease; E11.621 Type 2 diabetes mellitus with foot ulcer; D64.9 Anemia, unspecified; L97.414 Non-pressure chronic ulcer of right heel and midfoot with necrosis of bone; L03.115 Cellulitis of right lower limb; E11.69 Type 2 diabetes mellitus with other specified complication; L97.524 Non-pressure chronic ulcer of other part of left foot with necrosis of bone; M86.8X8 Other osteomyelitis, other site; Z99.2 Dependence on renal dialysis; F03.90 Unspecified dementia, unspecified severity, without behavioral disturbance, psychotic disturbance, mood disturbance, and anxiety; N39.0 Urinary tract infection, site not specified; E78.5 Hyperlipidemia, unspecified; K21.9 Gastro-esophageal reflux disease without esophagitis; X58.XXXA Exposure to other specified factors, initial encounter; Y93.89 Activity, other specified; Y92.89 Other specified places as the place of occurrence of the external cause; Y99.8 Other external cause status; Z79.82 Long term (current) use of aspirin
CPT/HCPCS: 36415; 70260; 70450; 71045; 73620; 76604; 76942; 80048; 80053; 81001; 82140; 82945; 82948; 83605; 83625; 83735; 83880; 84100; 84157; 84484; 85025; 85610; 85730; 87040; 87070; 87075; 87081; 87086; 87102; 87116; 87190; 87205; 87206; 88305; 89051; 93005; 94640; 94644; 96365; 96375; 97112; 97163-GP; 97530; 99291; J0360; J0696; J0885; J1815; J1940; J2001; J2060; J2270; J2543; J7060; J7613; Q0092; Q5106